=== PATIENT | male | born 1960 | race Caucasian/White ===

== ENCOUNTER 2018-08-24 22:27 | Emergency (ER) | payer OTHER ==
[~2018-08-24] VITALS: Ht 182.9 cm; Wt 92.2 kg
[2018-08-24 22:30] VITALS: BP 144/97
[2018-08-24] MEDS ORDERED: DIPH,PERTUSS(ACELL),TET VAC/PF 0.5 ML IM-VACC ONE ×2 (22:56→23:00)
[2018-08-24] MEDS ORDERED: LIDOCAINE-MPF 1%, 5ML ONE (23:41)
[2018-08-25] MEDS ORDERED: LIDOCAINE 1%, 2ML INFIL ONE
--- NOTE | 2018-08-25 00:12 | NUR ---
Patient/Caregiver given discharge instructions and they have confirmed that they understand the instructions. Patient ambulatory with steady gait.
[2018-08-25] MEDS ORDERED: ACETAMINOPHEN 500 MG TABLET PO ONE (00:30)
== END 2018-08-25 00:15 | disposition home or self-care (01) ==
LOC: ED 23:54
DX: S01.01XA Laceration without foreign body of scalp, initial encounter (principal); F10.120 Alcohol abuse with intoxication, uncomplicated; E11.9 Type 2 diabetes mellitus without complications; W01.0XXA Fall on same level from slipping, tripping and stumbling without subsequent striking against object, initial encounter; Y93.89 Activity, other specified; Y92.410 Unspecified street and highway as the place of occurrence of the external cause; Y99.8 Other external cause status
CPT/HCPCS: 12031; 70450; 72125; 82962; 90471; 90715

== ENCOUNTER 2019-12-17 14:18 | Emergency (ER) | payer OTHER ==
[~2019-12-17] VITALS: Ht 182.9 cm; Wt 90.0 kg
--- NOTE | 2019-12-17 14:34 | NUR ---
PER SELENE THE WHERE CALLED FOR PT THAT IS ALOC, TOLD THEM THAT PT WAS HARD TO AROUSE FROM SLEEP AND SHE CALLED 911 AND PUT FROSTING IN PT MOUTH. SELENE STATED "PT BLOOD SUGAR 40 ON SCENE AND WAS GIVEN 25G DEXTROSE THAT BROUGHT IT TO 212. PT STILL CONFUSED A/O X1
--- NOTE | 2019-12-17 14:34 | NUR ---
PT #[phone] AMANDA SHERMAN
[2019-12-17 15:30] LABS: BASOPHILS # (AUTO) 0.03 x10^3/uL (0-0.1); BASOPHILS % (AUTO) 0 % (0-1); EOSINOPHILS % (AUTO) 1 % (1-7); LYMPHOCYTES # (AUTO) 1.19 x10^3/uL (1-3.4); LYMPHOCYTES % (AUTO) 15 % (22-44); MD NO; MEAN CORPUSCULAR HEMOGLOBIN 33.1 pg (27.5-34.5); MEAN CORPUSCULAR HGB CONC 33.2 g/dL (33.2-36.2); MEAN PLATELET VOLUME 7.1 fL (7.4-10.4); MONOCYTES # (AUTO) 0.69 x10^3/uL (0.2-0.8); MONOCYTES % (AUTO) 9 % (2-9); NEUTROPHILS # (AUTO) 5.94 x10^3/uL (1.8-6.8); NEUTROPHILS % (AUTO) 75 % (42-75); PLATELET COUNT 382 x10^3/uL (130-400); RED BLOOD COUNT 4.69 x10^6/uL (4.38-5.82); RED CELL DISTRIBUTION WIDTH 12.9 % (9.4-14.8)
[2019-12-17 15:35] LABS: ALBUMIN 3.8 g/dL (3.4-5.0); ANION GAP 9 mmol/L (5-15); CALCIUM 9.2 mg/dL (8.5-10.1); CHLORIDE 107 mmol/L (98-107)
[2019-12-17 15:44] LABS: ALANINE AMINOTRANSFERASE 31 U/L (12-78); ALKALINE PHOSPHATASE 82 U/L (45-117); BILIRUBIN,TOTAL 0.5 mg/dL (0.2-1.0); CREATININE 0.89 mg/dL (0.7-1.3); TOTAL PROTEIN 7.4 g/dL (6.4-8.2)
[2019-12-17 15:59] LABS: MICROSCOPIC NOT IND
[2019-12-17 16:11] LABS: AMPHETAMINE SCREEN, URINE Negative (Negative); BARBITURATE SCREEN, URINE Negative (Negative); BENZODIAZEPINE SCREEN, URINE Positive (Negative); CANNABINOID SCREEN, URINE Negative (Negative); METHADONE SCREEN, URINE Negative (Negative)
[2019-12-17 16:16] LABS: COCAINE SCREEN, URINE Negative (Negative); OPIATE SCREEN, URINE Negative (Negative)
--- NOTE | 2019-12-17 16:56 | NUR ---
PT AMBULATED TO BATHROOM WITHOUT DIFFICULTY
--- NOTE | 2019-12-17 17:01 | NUR ---
PT PROVIDED CRACKERS AND WATER. PT ATE AND DRANK WITHOUT DIFFICULTY
[2019-12-17 17:32] VITALS: BP 148/101
== END 2019-12-17 17:46 | disposition home or self-care (01) ==
LOC: ED 17:40
DX: E11.649 Type 2 diabetes mellitus with hypoglycemia without coma (principal); R41.82 Altered mental status, unspecified; R00.0 Tachycardia, unspecified; Z79.899 Other long term (current) drug therapy
CPT/HCPCS: 70450; 72125; 80053; 80307; 81003; 82962; 85025; 93005; 99285